=== PATIENT | female | born 1975 | race Caucasian/White ===

== ENCOUNTER 2019-11-13 12:25 | Outpatient (CLI) | payer BC, SELFPAY ==
--- NOTE | ~2019-11-13 | XR_ITS ---
XR lumbar spine 2-3V DATE: 11/13/2019 13:30 INDICATION: Back pain TECHNIQUE: AP, lateral, coned lateral lumbosacral views COMPARISON: 12/05/2011 MRI lumbar spine FINDINGS: Normal alignment of the lumbar spine. No fracture or bone destruction or spondylolisthesis. There is minimal degenerative spurring of the lumbar spine. There is mild loss of interspace height a t L1-2, L2-3, L3-4 and moderate loss of interspace height at L5-S1. Sacroiliac joints are normal. IMPRESSION: Mild degenerative changes Reviewed, dictated and finalized at location A. IMPRESSION: Mild degenerative changes
== END 2019-11-13 12:26 | disposition home or self-care (01) ==
PROVIDERS: Visit Provider Obstetrics & Gynecology
DX: M51.36 Other intervertebral disc degeneration, lumbar region (principal)
CPT/HCPCS: 72100

== ENCOUNTER → 2020-05-04 10:38 | Outpatient (CLI) | payer BC, SELFPAY ==
--- NOTE | ~2020-05-04 | MM_ITS ---
EXAMINATION: MM screening [facility] BI w fatou HISTORY: Screening mammogram TECHNIQUE: Craniocaudal and mediolateral oblique 3-D tomosynthesis images were obtained and synthetic 2-D images were generated. CAD analysis was submitted and interpreted. COMPARISON: 01/06/2019 BREAST PARENCHYMAL COMPOSITION: The breasts are heterogeneously dense, which may obscure small masses . FINDINGS: There is no evidence of suspicious mass, calcification, or architectural distortion to sugg est malignancy in either breast. There has been no suspicious interval change. IMPRESSION: 1. No mammographic evidence of malignancy. 2. Recommend routine screening mammography in one year. BI-RADS Category 1: Negative Reviewed, dictated and finalized at location A.
== END ==
PROVIDERS: PCP Physician Assistant Medical; Visit Provider Obstetrics & Gynecology
DX: Z12.31 Encounter for screening mammogram for malignant neoplasm of breast (principal)
CPT/HCPCS: 77063; 77067

== ENCOUNTER → 2021-09-26 12:17 | Outpatient (CLI) | payer BC, SELFPAY ==
--- NOTE | ~2021-09-26 | MM_ITS ---
EXAMINATION: MM screening [facility] BI w fatou HISTORY: Screening TECHNIQUE: Craniocaudal and mediolateral oblique 3-D tomosynthesis images were obtained and synthetic 2-D images were generated. CAD analysis was submitted and interpreted. COMPARISON: Comparison to multiple prior studies sequentially, with oldest reviewed study dated 03/2018. BREAST PARENCHYMAL COMPOSITION: There are scattered areas of fibroglandular density. FINDINGS: There is no evidence of suspicious mass, calcification, or architectural distortion to sugg est malignancy in either breast. There has been no suspicious interval change. IMPRESSION: 1. No mammographic evidence of malignancy. 2. Recommend routine screening mammography in one year. BI-RADS Category 1: Negative Reviewed, dictated and finalized at location A.
== END ==
PROVIDERS: PCP Physician Assistant Medical; Visit Provider Obstetrics & Gynecology
DX: Z12.31 Encounter for screening mammogram for malignant neoplasm of breast (principal)
CPT/HCPCS: 77063; 77067

== ENCOUNTER → 2022-09-28 12:21 | Outpatient (CLI) | payer BC, SELFPAY ==
--- NOTE | ~2022-09-28 | MM_ITS ---
EXAMINATION: MM screening [facility] BI w fatou HISTORY: Screening mammogram TECHNIQUE: Craniocaudal and mediolateral oblique 3-D tomosynthesis images were obtained and synthetic 2-D images were generated. CAD analysis was submitted and interpreted. COMPARISON: 09/26/2021, 05/04/2020 bilateral screening mammogram examinations BREAST PARENCHYMAL COMPOSITION: There are scattered areas of fibroglandular density. FINDINGS: There is no evidence of suspicious mass, calcification, or architectural distortion to sugg est malignancy in either breast. There has been no suspicious interval change. IMPRESSION: 1. No mammographic evidence of malignancy. 2. Recommend routine screening mammography in one year. BI-RADS Category 1: Negative Reviewed, dictated and finalized at location A.
== END ==
PROVIDERS: PCP Obstetrics & Gynecology; Visit Provider Obstetrics & Gynecology
DX: Z12.31 Encounter for screening mammogram for malignant neoplasm of breast (principal)
CPT/HCPCS: 77063; 77067

== ENCOUNTER 2023-10-01 12:21 | Outpatient (CLI) | payer BC, SELFPAY ==
--- NOTE | ~2023-10-01 | MM_ITS ---
EXAMINATION: MM screening [facility] BI w fatou HISTORY: Screening TECHNIQUE: Craniocaudal and mediolateral oblique 3-D tomosynthesis images were obtained and synthetic 2-D images were generated. CAD analysis was submitted and interpreted. COMPARISON: Comparison to multiple prior studies sequentially, with oldest reviewed study dated 03/2018. BREAST PARENCHYMAL COMPOSITION: Not dense: There are scattered areas of fibroglandular density. FINDINGS: There is no evidence of suspicious mass, calcification, or architectural distortion to sugg est malignancy in either breast. There has been no suspicious interval change. IMPRESSION: 1. No mammographic evidence of malignancy. 2. Recommend routine screening mammography in one year. BI-RADS Category 1: Negative Reviewed, dictated and finalized at location B.
== END 2023-10-01 12:22 ==
LOC: MICIMG 12:22
PROVIDERS: PCP Obstetrics & Gynecology; Visit Provider Obstetrics & Gynecology
DX: Z12.31 Encounter for screening mammogram for malignant neoplasm of breast (principal)
CPT/HCPCS: 77063; 77067

== ENCOUNTER 2023-11-20 13:14 | Outpatient (CLI) | payer OTHER, SELFPAY ==
[2023-11-20 13:44] LABS: Hematocrit 39.7 % (37.0-47.0); Hemoglobin 13.2 g/dL (12.0-15.0); Mean Corpuscular HGB Conc 33.2 g/dl (32-36); Mean Corpuscular Hemoglobin 31.1 pg (26-34); Mean Corpuscular Volume 93.6 fl (80-100); Mean Platelet Volume 11.6 fl (7.4-10.4); Platelet Count Result 176 k/mm3 (150-375); Red Blood Count 4.24 M/mm3 (4.2-5.4); Red Cell Distribution Width 11.7 % (11.5-14.5); White Blood Count 4.5 K/mm3 (4.5-10.0)
[2023-11-20 13:59] LABS: Albumin Level 4.1 g/dL (3.5-5.1); Anion Gap 6 mmol/L (4-12); Blood Urea Nitrogen 10 mg/dL (7-17); Calcium 8.9 mg/dL (8.4-10.2); Carbon Dioxide 29 mmol/L (22-30); Chloride 102 mmol/L (98-107); Estimated Glomerular Filt Rate > 60; Glucose 87 mg/dL (65-110); Potassium 3.6 mmol/L (3.4-5.0); Sodium 137 mmol/L (137-145)
[2023-11-20 14:00] LABS: Hemoglobin A1C 5.3 % (<5.7)
[2023-11-20 14:20] LABS: Iron 81 ug/dL (37-170)
[2023-11-23 17:52] LABS: Vitamin B1 8 nmol/L (8-30)
== END 2023-11-20 13:15 | disposition home or self-care (01) ==
PROVIDERS: PCP Obstetrics & Gynecology; Visit Provider Surgery Plastic and Reconstructive Surgery
DX: R63.4 Abnormal weight loss (principal)
CPT/HCPCS: 36415; 80048; 82040; 83036; 83540; 84134; 84425; 85027

== ENCOUNTER 2023-12-20 00:55 | Day surgery (SDC) | payer OTHER, SELFPAY ==
[2023-12-14 14:41] VITALS: BMI 26.6
--- NOTE | 2023-12-14 14:48 | PC.NURSE ---
Report to the Outpatient Waiting Room, entrance under the green pavilion located off [facility], at time _0600_ on date _[id number]_. Planned Procedure Time: _0730_.? Time changes happen often and if your time is changed the preop area will call you the afternoon before. - You and your visitor will be asked to self-screen and do not enter if you have any COVID symptoms. Please call surgeon if you need to reschedule. - A mask is optional within the hospital at this time. Patients may have clear liquids (water, carbonated beverages, clear teas, apple juice) until 3 hours prior to surgery with a maximum of 20 ounces. - No food from midnight until time of surgery and no smoking Take only the following medications with a SIP of water on the morning of surgery: _None____ DO NOT STOP ANY OF YOUR OTHER PRESCRIPTION MEDICATIONS PRIOR TO SURGERY EXCEPT THE FOLLOWING Medications to discontinue per physician __Patient stopped all her medications on [phone] Please no make-up, nail french, hairspray, perfume, deodorant, or body powder the day of surgery.? No jewelry (including any body piercings) or valuables the day of surgery, leave them at home.? Please take a shower or bath the night before, or the morning of, surgery with an antibacterial soap.? Wear comfortable, loose fitting clothing.? Children are encouraged to wear pajamas. - Jewelry must be removed prior to entering the operating room.? Rings and piercings that are not removed may be cut off. - The hospital will not accept responsibility for valuables.? - Please leave all valuables, including medications, at home the day of surgery. If you are going home after surgery, a licensed limb driver must drive you home.? - NO public transportation without another adult if you receive anesthesia. - We recommend that an adult stay with you for 24 hours following discharge. - We also recommend that you do not drive, make important decision, drink alcoholic beverages, or take any drugs that were not prescribed by your health care provider for at least 24 hours after your discharge time. For Pediatric surgeries, we recommend two adults accompany the child home. Follow any additional instructions given to you from your surgeon. Telephone instructions given to ___Lorenza__and asked if any additional questions and then verbalized understanding. Patient advised to call surgeon office or pre surgery nurse liaison [phone] if any additional questions.
[2023-12-20] VITALS (10 sets, daily range): BP systolic 97–149; BP diastolic 46–88; PULSE 70–76; RESP 16–22; TEMP 36.4–36.9; O2SAT 93–100
--- NOTE | 2023-12-20 05:51 | ECG_ITS ---
Test Date: 2023-12-20 06:40:51 Measurements Intervals Comfort Rate: 64 P: 37 NC: 137 QRS: 38 QRSD: 83 T: 38 QT: 415 QTc: 431 Interpretive Statements SINUS RHYTHM MINIMAL Q WAVES- INFERIOR LEADS BASELINE ARTIFACT- I, II, AVR, V1 BORDERLINE ECG No previous ECG available for comparison Electronically Signed On 12-20-2023 07:51:38 RECRUITMENT AND OUTREACH ASSISTANT by Eleuterio Arellano D.O.
[2023-12-20 06:38] LABS: Urine Cotinine NEGATIVE
[2023-12-20] MEDS: LACTATED RINGERS 1,000 ML 30 ML IV CONT ×2 (06:45→12:07)
[2023-12-20] MEDS: SCOPOLAMINE 1 MG PATCH 1 PATCH TRANSDERM (06:51)
--- NOTE | 2023-12-20 07:03 | WPDHPUPDATE1 ---
History and Physical Update Update Date/Time: 12/20/23 07:03 History and Physical has been reviewed, including an updated exam of the patient. There are NO changes in the patient's condition. Risks, benefits, and alternatives have been discussed and questions answered. Patient agrees to proceed with procedure.
--- NOTE | 2023-12-20 07:03 | W.PM.PROC2 ---
Procedure Note - Detailed Date of Procedure 12/20/23 Pre-op Diagnosis breast ptosis,micromastia Post-op Diagnosis Same Procedure Performed 1. Bilateral mastopexy with Galaflex 2. Fat grating breast 3. Suction lipectomy lateral breast / chest wall 4. Central scar revision Surgeon Juan Alberto Pate MD Anesthesia General Findings Inverted T Superior medial pedicle Lipoaspirate: 2,200 cc Lignite sites: Back, flanks, lateral breast/chest wall. Fat grafting: Right breast: 350 cc Left breast: 300 cc Galaflex REF# [id number] Description of Procedure They are here today for the above procedures. Previously and again today the risks, benefits, alternatives were discussed in extensive detail. I wanted them to be very realistic about the risks involved as well as expectations. We discussed aftercare and what to monitor for. She understands given her history of cardiac surgery she does have very unique risks which were outlined extensively. She had open wounds / skin grafts with her cardiac surgery and is very familiar with. We discussed DVT/PE risks and management. Made sure answered all of their questions to their satisfaction today and consent was obtained. They were marked in the preoperative holding area with their verification. The patient was taken to the operating room. Anesthesia was provided by anesthesiology. A Leiva catheter was started. Placed prone on the operating room table with care taken to protect from injury. Adipose harvest Prepped and draped in a standard sterile fashion. A surgical time-out was taken. Stab incisions were made and tumescent solution was infiltrated. Once adequate time was allowed for hemostasis a 3mm mutli hole fat harvest cannula were utilized to complete suction lipectomy in multiple planes and passes to a gravity separation. Final contour was with a 4mm gill cannula. Suction lipectomy continued to result based on pre-operative planning, intra-operative observation, and rolling pinch test which were in full agreement. Patient was then placed supine with care taken to protect from injury. Stab incisions were made and tumescent solution was infiltrated. Once adequate time was allowed for hemostasis a 3mm mutli hole fat harvest cannula were utilized to complete suction lipectomy in multiple planes and passes to a gravity separation. Final contour was with a 4mm gill cannula. Suction lipectomy continued to result based on pre-operative planning, intra-operative observation, and rolling pinch test which were in full agreement. Mastopexy Eleven blade was utilized to make a stab incision and infiltrated with low volume tumescent solution. The breast was tailor tacked into place. I tailor tacked the breast into position. Placed her in a sitting position. Verified the nipple-areolar location based on preoperative planning as well as intraoperative observations and measurements in full agreement. She was placed supine. I de-epithelialized the pedicle. I elevated medial and lateral tissue flaps as well for planned closure. Galaflex was soaking on the back table in a betadine solution. It was trimmed and sutured into place with 2-0 Vicryl A 3mm mutli hole fat harvest cannula were utilized to complete suction lipectomy in multiple planes and passes to a gravity separation. Final contour was with a 4mm gill cannula. Suction lipectomy continued to result based on pre-operative planning, intra-operative observation, and rolling pinch test which were in full agreement. Fat grating was completed with the 4mm cannula utilizing Microaire cannula. Fat was transferred to 60cc syringes with the fast food assistant restaurant manager feeding through lipo tubing to volumes as above. I closed along the IMF with 2-0 Stratafix. Along the vertical with 2-0 PDS. I closed around the French with 3-0 strata fix. 3-0 Monocryl along the vertical. 3-0 Stratafix along the IMF. I finally closed everything with running subcuticular 4-0 Monocryl and tissue glue. Central scar revision Central chest z plasty created with 15 blade and transposed into position. This was closed with 3-0 Monocryl and 5-0 plain gut suture. Fluffs and surgical bra were placed as well as TopiFoam and a binder. Estimated Blood Loss 50 Drains No Packing No Pathology None sent Complications No immediate complications Condition Stable Disposition PACU
--- NOTE | 2023-12-20 07:11 | P.PNAN_ITS ---
Anes - Initial Pre Proc Eval Procedure: Operation Date: 12/20/23 07:30 Proposed Procedures p Bilateral Breast Mastopexy with Galaflex, - Juan Alberto Pate MD s Fat Grafting to Bilateral Breasts, Bilateral Lateral Breast to Bra Roll Liposuction, Central Chest Scar Revision - Juan Alberto Pate MD Date/Time: 12/20/23 07:11 Surgeon: Juan Alberto Pate MD Pre Op Diagnosis: breast ptosis,micromastia Patient Data Age: 48 Gender: F Height: 1.6 m Weight: 74.9 kg Last Vital Signs Temp 36.9 C 12/20/23 06:27 Pulse 71 12/20/23 06:27 Resp 16 12/20/23 06:27 BP 149/88 H 12/20/23 06:27 Pulse Ox 99 12/20/23 06:27 O2 Del Method Room Air 12/20/23 06:27 Allergies Allergy/AdvReac Type Severity Reaction Status Date / Time No Known Allergies Allergy Verified 12/20/23 06:40 Home Medications Medication Instructions Recorded Confirmed Type estradiol 0.05 mg/24 hr semiweekly 1 patch transdermal 2XW #8 ea 11/05/23 12/20/23 Rx transdermal patch progesterone micronized 100 mg 100 mg PO DAILY #21 caps 11/27/23 12/20/23 Rx capsule estradiol 1.25 mg/1.25 gram (0.1 1 packet topical DAILY 12/14/23 12/20/23 History %) transdermal gel packet Laboratory Tests 12/20/23 06:19 Cotinine Negative Patient hx anesthesia problems: none Family hx anesthesia problems: none Results Review: All pre-operative results and documents have been reviewed as part of the pre- operative evaluation. [facility] Past Medical History Medical History Hypercholesteremia Obesity Pre-diabetes Surgical History Surgical History H/O laparoscopy endometriosis H/O: hysterectomy Family History Family History Father Family history of thyroid disease Grandparent Family history of diabetes mellitus in first degree relative Social History Social History Social History: 11/27/23 very confident with medical forms Smoking status: Never smoker Alcohol intake: current Drinks per week: 1 Substance use: never Do You Feel Safe in your Home?: Yes Lack of Transportation: No Lack of Food: Never True Current Housing: I Have Housing Concerned About Future Housing: No Difficulty Paying Gas/Electric Bills: No Difficulty Paying for Meds: No Currently Unemployed: No Education: High School Diploma/GED Difficulty w/ Childcare or Family Care: No Living arrangements: with family Occupation/Education: other 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 Patient states having open heart surgery as a teenager for a congenital atrial septal defect. States no other cardiac hx. Informed Consent: The patient's anesthetic plan and its attendant risks and benefits were discussed with the patient/family/POA. Questions were solicited and answers provided to the satisfaction of the patient/family/POA.
[2023-12-20] MEDS: ceFAZolin 2 GM/D5W 50 ML 2 GM/50 ML BAG IVPB (07:36)
[2023-12-20] MEDS: TRANEXAMIC ACID 1,000MG/ISO100 1,000 MG/100 ML BAG 200 MG IVPB (07:55)
[2023-12-20] MEDS: LACTATED RINGERS IRRIG 1,000 ML, LIDOCAINE HCL 1% LOCAL INJ 50 ML, EPINEPHrine HCL INJ ... INFILTRATE (08:24)
[2023-12-20] MEDS: NACL 0.9% IRRIG POUR BOTTLE 900 ML, GENTAMICIN SULFATE INJ 160 MG, ceFAZolin 2 GM, POVI... IRRIGATION (08:24)
[2023-12-20] MEDS: ceFAZolin SODIUM 1 GM VIAL IV PUSH (11:36)
--- NOTE | 2023-12-20 12:10 | SUR.OPER ---
225mL clear yellow urine drained from barragan bag at 1200 in the Operating Room
[2023-12-20] MEDS: oxyCODONE HCL (*CRX) 5 MG TAB IR PO (13:25)
== END 2023-12-20 14:10 | disposition home or self-care (01) ==
PROVIDERS: PCP Physician Assistant Medical; Visit Provider Surgery Plastic and Reconstructive Surgery
PROC: (CPT 19316; principal; 2023-12-20 07:30)
PROC: (CPT 15769; 2023-12-20 07:30)
DX: Z41.1 Encounter for cosmetic surgery (principal); N64.81 Ptosis of breast; N64.82 Hypoplasia of breast
CPT/HCPCS: 19316; 15777 ×2; 15771; 15772 ×12; 80307; 93005; A9270; J0171; J0690; J1100; J1171; J1580; J2003; J2004; J2250; J2405; J2704; J3010; J7120

== ENCOUNTER 2023-12-21 11:58 | Outpatient (CLI) | payer BC, SELFPAY ==
--- NOTE | ~2023-12-21 | US_ITS ---
EXAMINATION: US venous doppler [facility] DATE: 12/21/2023 12:33 INDICATION: Left calf and leg pain. TECHNIQUE: Grayscale ultrasound images without and with compression and Doppler ultrasound images of the left lower extremity veins were obtained. COMPARISON: None. FINDINGS: The visualized portions of left common femoral vein, profunda (deep) femoral vein, femoral vein, popl iteal vein, peroneal veins, posterior tibial veins, and greater saphenous vein outflow are patent. IMPRESSION: 1. No deep venous thrombosis. Reviewed, dictated and finalized at location A. MACHINE OPERATOR
== END 2023-12-21 11:59 | disposition home or self-care (01) ==
PROVIDERS: PCP Physician Assistant Medical; Visit Provider Surgery Plastic and Reconstructive Surgery
DX: M79.662 Pain in left lower leg (principal)
CPT/HCPCS: 93971

== ENCOUNTER 2024-01-09 20:49 | Outpatient (NON) | payer BC, SELFPAY | END 2024-01-09 20:50 | disposition home or self-care (01) | LOC: ANHLAB 20:53 | PROVIDERS: PCP Physician Assistant Medical; Visit Provider Surgery Plastic and Reconstructive Surgery | DX: S21.002A Unspecified open wound of left breast, initial encounter (principal); X58.XXXA Exposure to other specified factors, initial encounter | CPT/HCPCS: 87070; 87075; 87077; 87186; 87205 ==

== ENCOUNTER 2024-11-20 15:00 | Outpatient (CLI) | payer BC, SELFPAY ==
--- NOTE | ~2024-11-20 | MM_ITS ---
EXAMINATION: MM screening carol BI w fatou HISTORY: Screening TECHNIQUE: Craniocaudal and mediolateral oblique 3-D tomosynthesis images were obtained and synthetic 2-D images were generated. CAD analysis was submitted and interpreted. COMPARISON: 09/24/2021 BREAST PARENCHYMAL COMPOSITION: The breasts are extremely dense, which lowers the sensitivity of mammography. FINDINGS: Asymmetry in the central right breast, middle to posterior depth with questionable architectural distortion. Indeterminate calcifications in the upper-outer quadrant of the right breast posterior depth. Indeterminate calcifications in the upper left breast, posterior depth, seen in the left MLO projection. Asymmetry in the central left breast, middle depth with questionable architectural distortion. Indeterminant calcifications in the lower inner quadrant of the left breast, posterior depth. IMPRESSION: 1. Asymmetry in the central right breast, middle to posterior depth, with questionable architectural distortion. The study is incomplete. A diagnostic mammogram and a diagnostic ultrasound are recommended. 2. Asymmetry in the central left breast, middle depth, with questionable architectural distortion. Indeterminant calcifications in the lower inner quadrant of the left breast, posterior depth. The study is incomplete. A diagnostic mammogram and a diagnostic ultrasound are recommended. BI-RADS 0: Incomplete-Need additional imaging evaluation. Reviewed, dictated and finalized at location Q. IMPRESSION: 1. Asymmetry in the central right breast, middle to posterior depth, with quest ionable architectural distortion. The study is incomplete. A diagnostic mammogr am and a diagnostic ultrasound are recommended. 2. Asymmetry in the central left breast, middle depth, with questionable chandan ectural distortion. Indeterminant calcifications in the lower inner quadrant of the left breast, posterior depth. The study is incomplete. A diagnostic mammog elvira and a diagnostic ultrasound are recommended. BI-RADS 0: Incomplete-Need additional imaging evaluation.
--- OUTSIDE RECORDS SUMMARY | 2024-11-20 17:10 | XMS_ITS | Clinical Summary ---
Author Organization [facility] Address [address] [place] [address] Care Team Providers Care Mine Technician Name Role Phone Ursula Bradford Primary Care Provider Source Comments [facility],non-owned Affiliates and Associated Physician Practices is amultiple site organization consisting of ambulatory clinics and hospital sitesin [place], [place], [place] and [place]. This disclosure is being madepursuant to the Care Everywhere program and may not contain all information available regarding this patient. Last updated 17.[facility] Social History Tobacco Use Types Packs/Day Years Used Date Smoking Tobacco: Never Assessed Comments Unknown Sex and Gender Information Value Date Recorded Sex Assigned at Not on file Legal Sex Female 9:59 AM CDT Gender Identity Not on file Sexual Orientation Not on file Plan of Treatment Health Maintenance Due Date Last Done Comments COLOGUARD (AGES 45-75) - COL ON CA SCREENING 1974 COLON MONITORING 1974 COLONOSCOPY - COLON CA SCREENING 1974 CT COLONOGRAPHY - COLON CA SCREENING 1974 Colorectal Cancer Screening 1974 FIT - COLON CA SCREENING 1974 FLEX SIG - COLON CA SCREENING 1974 LIPID TESTING 1974 MAMMOGRAM 1974 HIV SCREENING 1989 HEPATITIS C SCREENING 04/01/1992 DTAP/TDAP/TD VACCINES (1 - Tdap) 1993 HEPATITIS B VACCINE (1 of 3 - 19+ 3-dose series) 1993 PAP SMEAR 04/07/1995 DEPRESSION SCREENING 02/06/2024 PNEUMOCOCCAL VACCINE 50+ (1 of 1 - PCV) 2024 ZOSTER VACCINE (1 of 2) 2024 COVID-19 VACCINE (1 - 2023-2 5 season) 2024 INFLUENZA VACCINE (#1) 2024 HIB VACCINE Aged Out No longer eligi ble based on patient's age to complete this topic HPV VACCINE Aged Out No longer eligi ble based on patient's age to complete this topic MENINGOCOCCAL (Group B) VACC INE SHARED DECISION-MAKING Aged Out No longer eligibl e based on patient's age to complete this topic MENINGOCOCCAL GROUPS A/C/Y/W VACCINE Aged Out No longer eligible b ased on patient's age to complete this topic Care Teams Mine Technician Relationship Specialty Start Date End Date Ursula Bradford PA [address] [place] [id number] PCP - General 10/07/21
--- OUTSIDE RECORDS SUMMARY | 2024-11-20 17:10 | XMS_ITS | Clinical Summary ---
Author Organization [facility] Address [address] [place] [address] Phone Care Team Providers Care Hand Ironer Name Role Phone [facility], External Provider Primary Care Provider U navailable Allergies No known active allergies Medications predniSONE (DELTASONE) 1 mg tablet Take 1 mg by mouth daily. Pt unaware of dose she takes. 3 pills once a day Active Active Problems Problem Noted Date Diagnosed Date Sciatica 02/05/2019 Sepsis 02/05/2019 Influenza 02/05/2019 Pneumonia due to infectious organism 02/05/2019 Lactic acidosis Immunizations Immunization Administration Dates Next Due INFLUENZA VACCINE QUADRIVALENT 6 MOS UP PF IM Family History Medical History Relation Name Comments Thyroid Disease Father Diabetes Maternal Grandfather Relation Name Status Comments Father Maternal Grandfather Social History Tobacco Use Types Packs/Day Years Used Date Smoking Tobacco: Never Smokeless Tobacco: Never Feeling Safe Answer Date Recorded Within the last year, have y ou been afraid of your partner or ex-partner? No 02/05/2019 Within the last year, have y ou been humiliated or emotionally abused in other ways by your partner or ex-partner? No Within the last year, have y ou been kicked, hit, slapped, or otherwise physically hurt by your partner or ex-partner? No 02/05/2019 Within the last year, have y ou been raped or forced to have any kind of sexual activity by your partner or ex-partner? No 02/05/2019 Social Connections Answer Date Recorded In a typical week, how many times do you talk on the phone with family, friends, or neighbors? Once a week 02/05/2019 How often do you get together with friends or re latives? Once a week 02/05/2019 Attends Christianity Services Not on file 02/05 Do you belong to any clubs o r organizations such as mu-ism groups, unions, fraternal or athletic groups, or school groups? No 02/05/2019 How often do you attend meet ings of the clubs or organizations you belong to? Never 02/05/2019 Are you , , di vorced, , never , or living with a partner? 02/05/2019 Financial Resource Strain Answer Date R ecorded How hard is it for you to pa y for the very basics like food, housing, medical care, and heating? Not hard at all 02/05/2019 Food Insecurity Answer Date Recorded Within the past 12 months, y ou worried that your food would run out before you got the money to buy more. Never true 02/05/19 20 Within the past 12 months, t he food you bought just didn't last and you didn't have money to get more. Never true 02/05/2019 Transportation Needs Answer Date Record ed In the past 12 months, has l ack of transportation kept you from medical appointments or from getting medications? No 02/2019 In the past 12 months, has l ack of transportation kept you from meetings, work, or from getting things needed for daily living? No 02/05/2019 Comments No Sex and Gender Information Value Date Recorded Sex Assigned at Not on file Legal Sex Female 9:17 PM TAILMAN Gender Identity Not on file Sexual Orientation Not on file Last Filed Vital Signs Vital Sign Reading Time Taken Comments Blood Pressure 111/60 02/05/2019 12:51 PM TAILMAN Pulse 76 02/05/2019 12:51 PM TAILMAN Temperature 36.8 C (98.2 F) 02/05/2019 12:51 PM TAILMAN Respiratory Rate 16 02/05/2019 11:28 AM TAILMAN Oxygen Saturation 92% 02/05/2019 12:51 PM TAILMAN Inhaled Oxygen Concentration - - Weight 83.9 kg (185 lb) 02/04/2019 9:37 PM TAILMAN Height 160 cm (5' 3) 02/04/2019 9:37 PM TAILMAN Body Mass Index 32.77 02/04/2019 9:37 PM TAILMAN Plan of Treatment Health Maintenance Due Date Last Done Comments DTAP/TDAP/TD VACCINES (1 - Tdap) 1993 HEPATITIS B VACCINES (1 of 3 - 19+ 3-dose series) 03/1993 HPV/Cotest (21-29) 04/07/1995 CERVICAL CANCER SCREENING 2004 HPV/Cotest (30-65) 2004 PAP SMEAR 2004 BREAST CANCER SCREENING 2014 COLORECTAL SCREENING 04/07/2019 Colorectal Cancer Screening 04/07/2019 FIT-DNA Q 3 years 04/07/2019 FIT/FOBT Q 1 year 04/07/2019 Flex Sig/CT Colonography Q 5 years 04/07/2019 ZOSTER VACCINE (1 of 2) 2024 INFLUENZA VACCINE (#1) 2024 02/05/[address] [place] [address] [facility] CHO[facility] Advance Directives For more information, please contact: [phone] * Full Code (Latest Code Status on File) Date Activated Date Inactivated Comments 02/05/2019 2:59 AM 02/05/2019 6:02 PM Care Teams Hand Ironer Relationship Specialty Start Date End Date [facility], External Provider [address] [place] [address] PCP - General 02/05/19
== END 2024-11-20 15:01 | disposition home or self-care (01) ==
LOC: CHSIMG 15:01
PROVIDERS: PCP Physician Assistant Medical; Visit Provider Obstetrics & Gynecology
DX: Z12.31 Encounter for screening mammogram for malignant neoplasm of breast (principal); R92.8 Other abnormal and inconclusive findings on diagnostic imaging of breast
CPT/HCPCS: 77063; 77067

== ENCOUNTER 2025-01-06 09:46 | Outpatient (CLI) | payer BC, SELFPAY ==
--- NOTE | ~2025-01-06 | MMUS_ITS ---
EXAMINATION: MM diagnostic carol BI w fatou, US breast BI complete HISTORY: Follow-up bilateral breast asymmetries TECHNIQUE: Additional 3-D tomosynthesis images of the breasts were performed and synthetic 2-D images were generated. CAD analysis was submitted and interpreted. High resolution bilateral complete breast ultrasound was performed. COMPARISON: Comparison to multiple prior studies sequentially, with oldest reviewed study dated 01/06/2019. BREAST PARENCHYMAL COMPOSITION: Dense: The breasts are heterogeneously dense, which may obscure small masses FINDINGS: MAMMOGRAPHIC FINDINGS: There are no discrete masses. There are no areas of suspicious calcifications or architectural distortion. ULTRASOUND: Complete US of all 4 quadrants of the breast/s and retroareolar region was reviewed. Right breast: There are multiple cysts which are simple and complicated. At 8:00, 8 cm from the nipple there is a cluster of complicated cysts measuring up to 3.3 cm in aggregate. Left breast: At 6:00, 2 cm from the nipple there is an oval hypoechoic 7 mm mass with slightly irregular margins, no posterior features and no internal vascularity. IMPRESSION: 1. Left breast mass at 6:00, 2 cm from the nipple measuring 7 mm with slightly irregular margins. Ultrasound-guided left breast biopsy recommended. 2. Probable benign complicated cysts of the right breast. Six-month follow-up Limited right breast ultrasound recommended. BI-RADS category 4, suspicious findings. Reviewed, dictated and finalized at location I. NG ROOM HOST/HOSTESS IMPRESSION: 1. Left breast mass at 6:00, 2 cm from the nipple measuring 7 mm with slightly irregular margins. Ultrasound-guided left breast biopsy recommended. 2. Probable benign complicated cysts of the right breast. Six-month follow-up L imited right breast ultrasound recommended. BI-RADS category 4, suspicious findings.
--- OUTSIDE RECORDS SUMMARY | 2025-01-06 10:37 | XMS_ITS | Clinical Summary ---
Author Organization [facility] Address [address] [place] [address] Care Team Providers Care Donor Services Coordinator Name Role Phone Ursula Bradford Primary Care Provider Source Comments [facility],non-owned Affiliates and Associated Physician Practices is amultiple site organization consisting of ambulatory clinics and hospital sitesin [place], [place], [place] and [place]. This disclosure is being madepursuant to the Care Everywhere program and may not contain all information available regarding this patient. Last updated 17.[facility] Social History Tobacco Use Types Packs/Day Years [...] of 3 - 19+ 3-dose series) 1993 Cervical Cancer Screening 04/07/1995 PAP SMEAR 04/07/1995 PAP with HPV 2004 DEPRESSION SCREENING 02/06/2024 PNEUMOCOCCAL VACCINE 50+ (1 of 1 - PCV) 2024 ZOSTER VACCINE (1 of 2) 2024 COVID-19 VACCINE (1 - 2024-2 6 season) 2024 INFLUENZA VACCINE (#1) 2024 HIB [...] age to complete this topic Care Teams Donor Services Coordinator Relationship Specialty Start Date End Date Ursula Bradford PA [address] [place] [id number] PCP - General 10/07/21
--- OUTSIDE RECORDS SUMMARY | 2025-01-06 10:37 | XMS_ITS | Clinical Summary ---
Author Organization [facility] Address [address] [place] [phone] Phone Care Team Providers Care Operating Engineer Apprentice Name Role Phone [facility], External Provider Primary Care Provider U navailable [...] re latives? Once a week 02/05/2019 Attends Sabianism Services Not on file 02/05 Do you belong to any clubs o r organizations such as mormonism groups, unions, fraternal or athletic groups, or [...] on file Legal Sex Female 9:17 PM CANAL TENDER Gender Identity Not on file Sexual Orientation Not on file Last Filed Vital Signs Vital Sign Reading Time Taken Comments Blood Pressure 111/60 02/05/2019 12:51 PM CANAL TENDER Pulse 76 02/05/2019 12:51 PM CANAL TENDER Temperature 36.8 C (98.2 F) 02/05/2019 12:51 PM CANAL TENDER Respiratory Rate 16 02/05/2019 11:28 AM CANAL TENDER Oxygen Saturation 92% 02/05/2019 12:51 PM CANAL TENDER Inhaled Oxygen Concentration - - Weight 83.9 kg (185 lb) 02/04/2019 9:37 PM CANAL TENDER Height 160 cm (5' 3) 02/04/2019 9:37 PM CANAL TENDER Body Mass Index 32.77 02/04/2019 9:37 PM CANAL TENDER Plan of Treatment Health Maintenance Due Date [...] 2024 INFLUENZA VACCINE (#1) 2024 02/05/2019 Insurance [facility] BLUE ACCESS CHOICE Advance Directives For more information, please contact: [phone] * Full Code (Latest Code Status on File) Date Activated Date Inactivated Comments 02/05/2019 2:59 AM 02/05/2019 6:02 PM Care Teams Operating Engineer Apprentice Relationship Specialty Start Date End Date [facility] [address] [place] [address] PCP - General 02/05/19
--- OUTSIDE RECORDS SUMMARY | 2025-01-06 10:37 | XMS_ITS | Clinical Summary ---
Author Organization [facility] Address [facility] [place] [address] Care Team Providers Care Irrigation Laborer Name Role Phone None, Provider MD Primary Care Provider Unavaila ble Allergies No known active allergies Medications atorvastatin (LIPITOR) 10 MG tablet Take 10 mg by mouth daily. 01/24/2022 Active metFORMIN (GLUCOPHAGE) 500 MG tablet Take 500 mg by mouth 2 (two) times daily with meals. Active valACYclovir (VALTREX) 1 g tabletIndications :Herpes zoster without complication Take 1 tablet (1,000 mg total) by mouth 3 (three) times daily. 30 tablet 02/10/2022 Active Active Problems No known active problems Immunizations Immunization Administration Dates Next Due Influenza Adult (Generic) 02/05/2019 Tdap (Generic) 02/16/2018 Social History Tobacco Use Types Packs/Day Years Used Date Smoking Tobacco: Never Passive Smoke Exposure: Never Smokeless Tobacco: Never Tobacco Cessation:Counseling Given: No Comments No Sex and Gender Information Value Date Recorded Sex Assigned at Not on file Legal Sex Female 5:21 PM CDT Gender Identity Not on file Sexual Orientation Not on file Last Filed Vital Signs Vital Sign Reading Time Taken Comments Blood Pressure 134/83 02/10/2022 12:19 PM FIRE PREVENTION BUREAU CAPTAIN Pulse 64 02/10/2022 12:19 PM FIRE PREVENTION BUREAU CAPTAIN Temperature 36.2 C (97.1 F) 02/10/2022 12:19 PM FIRE PREVENTION BUREAU CAPTAIN Respiratory Rate 20 02/10/2022 12:19 PM FIRE PREVENTION BUREAU CAPTAIN Oxygen Saturation 98% 02/10/2022 12:19 PM FIRE PREVENTION BUREAU CAPTAIN Inhaled Oxygen Concentration - - Weight 88.5 kg (195 lb) 02/10/2022 12:19 PM FIRE PREVENTION BUREAU CAPTAIN Height 160 cm (5' 3) 02/10/2022 12:19 PM FIRE PREVENTION BUREAU CAPTAIN Body Mass Index 34.54 02/10/2022 12:19 PM FIRE PREVENTION BUREAU CAPTAIN Plan of Treatment Health Maintenance Due Date Last Done Comments Cervical Cancer Screening Pa p Smear (Age 30 to 64) Every 3 Years 1974 Colorectal Cancer Screening Colonoscopy (10 Years) 1974 Annual Physical 1977 Hepatitis C 1992 Hepatitis B Vaccines (1 of 3 - 19+ 3-dose series) 1993 Cervical Cancer Screening Pa p with HPV Testing (Age 30 to 64) Every 5 Years 2004 Cervical Cancer Screening with HPV 2004 Mammogram Screening 2014 Pneumococcal Vaccine: 50+ Ye ars (1 of 1 - PCV) 2024 Zoster Vaccines (1 of 2) 2024 COVID-19 Vaccine (1 - 2024-2 6 season) 2024 Influenza Adult (#1) 2024 02/05/2019 DTaP, Tdap and Td Vaccines ( 2 - Td or Tdap) 02/17/2028 02/16/2018 Hepatitis A Vaccines Aged Out No long er eligible based on patient's age to complete this topic Meningococcal B Vaccine Aged Out No l onger eligible based on patient's age to complete this topic Meningococcal Vaccine Aged Out No darby billy eligible based on patient's age to complete this topic RSV Immunizations Under 20 Months Aged Out No longer eligible based on patient's age to complete this topic Insurance [place], [place] [id number] [place] [address] Care Teams Irrigation Laborer Relationship Specialty Start Date End Date None, Provider, MD PCP - General UNKNOWN PHYSICIAN SPECIALTY 02/10/22
== END 2025-01-06 09:47 | disposition home or self-care (01) ==
PROVIDERS: PCP Physician Assistant Medical; Visit Provider Obstetrics & Gynecology
DX: R92.8 Other abnormal and inconclusive findings on diagnostic imaging of breast (principal)
CPT/HCPCS: 76641; 77062; 77066; G0279

== ENCOUNTER 2025-01-21 08:57 | Outpatient (CLI) | payer BC, SELFPAY ==
--- NOTE | ~2025-01-21 | MMUS_ITS ---
PROCEDURE: US breast biopsy LT w image, MM post biopsy diagnostic LT CLINICAL HISTORY: 49-year-old female with suspicious left breast mass presents for ultrasound-guided core needle biopsy procedure. COMPARISON: 01/06/2025. Following informed consent including risks, benefits, and possible complications, the patient was brought to the ultrasound suite. A time-out procedure was performed. A preliminary ultrasound of the left breast was performed, redemonstrating hypoechoic mass at 6:00 location. The patient was prepped and draped in the usual sterile fashion. 1% lidocaine was instilled into the subcutaneous tissues. 1% lidocaine without epinephrine was injected into the deep tissues just inferior to the lesion. Approximately 15cc lidocaine was administered. A small skin sonali was made. Multiple core samples were obtained with a 14-gauge multi pass biopsy needle. A post biopsy [place] coil marker was placed at the biopsy site. Postprocedural mammogram of the left breast in craniocaudal and mediolateral projections reveal the post biopsy metal marker in good position. The patient tolerated the procedure well and was without immediate postprocedural complications. IMPRESSION: Successful ultrasound guided biopsy of left breast hypoechoic mass. A post biopsy metal marker was placed at the biopsy site, which is seen on postprocedural mammogram. The patient tolerated the procedure well without immediate postprocedure complications. The patient was given postprocedural instructions and sent home in stable condition. Pathology report pending Reviewed, dictated and finalized at location A. LE APPLICATION TESTER IMPRESSION: Successful ultrasound guided biopsy of left breast hypoechoic mass. A post biopsy metal marker was placed at the biopsy site, which is seen on pos tprocedural mammogram. The patient tolerated the procedure well without immediate postprocedure compli cations. The patient was given postprocedural instructions and sent home in sta ble condition. Pathology report pending
--- OUTSIDE RECORDS SUMMARY | 2025-01-21 09:36 | XMS_ITS | Clinical Summary ---
Author Organization [facility] Address [address] [place] [address] Care Team Providers Care Milker Machine Name Role Phone Ursula Bradford Primary Care Provider [phone] Source Comments [facility],non-owned Affiliates and Associated Physician Practices is amultiple site organization consisting of ambulatory clinics and hospital sitesin [place], [place], [place] and [place]. This disclosure is being madepursuant to the Care Everywhere program and may not contain all information available regarding this patient. Last updated 17.[facility] Social History Tobacco Use Types Packs/Day [...] age to complete this topic Care Teams Milker Machine Relationship Specialty Start Date End Date Ursula Bradford PA [address] [place] [id number] PCP - General 10/07/21
--- OUTSIDE RECORDS SUMMARY | 2025-01-21 09:36 | XMS_ITS | Clinical Summary ---
Author Organization [facility] Address [facility] [place] [address] Care Team Providers Care Boiler Inspector Name Role Phone None, Provider MD Primary [...] Comments Blood Pressure 134/83 02/10/2022 12:19 PM BRANCH SPECIALIST Pulse 64 02/10/2022 12:19 PM BRANCH SPECIALIST Temperature 36.2 C (97.1 F) 02/10/2022 12:19 PM BRANCH SPECIALIST Respiratory Rate 20 02/10/2022 12:19 PM BRANCH SPECIALIST Oxygen Saturation 98% 02/10/2022 12:19 PM BRANCH SPECIALIST Inhaled Oxygen Concentration - - Weight 88.5 kg (195 lb) 02/10/2022 12:19 PM BRANCH SPECIALIST Height 160 cm (5' 3) 02/10/2022 12:19 PM BRANCH SPECIALIST Body Mass Index 34.54 02/10/2022 12:19 PM BRANCH SPECIALIST Plan of Treatment Health Maintenance Due Date [...] patient's age to complete this topic Insurance [place], [place] [id number] [place] [address] Care Teams Boiler Inspector Relationship Specialty Start Date End Date None, Provider, MD PCP - General UNKNOWN PHYSICIAN SPECIALTY 02/10/22
--- OUTSIDE RECORDS SUMMARY | 2025-01-21 09:36 | XMS_ITS | Clinical Summary ---
Author Organization [facility] Address [address] [place] [phone] Phone Care Team Providers Care Sifter And Miller Name Role Phone [facility], External Provider Primary Care Provider U [...] re latives? Once a week 02/05/2019 Attends Zoroastrian Services Not on file 02/05 Do you belong to any clubs o r organizations such as synagogue groups, unions, fraternal or athletic groups, or [...] on file Legal Sex Female 9:17 PM SENIOR ADULTS DIRECTOR Gender Identity Not on file Sexual Orientation Not on file Last Filed Vital Signs Vital Sign Reading Time Taken Comments Blood Pressure 111/60 02/05/2019 12:51 PM SENIOR ADULTS DIRECTOR Pulse 76 02/05/2019 12:51 PM SENIOR ADULTS DIRECTOR Temperature 36.8 C (98.2 F) 02/05/2019 12:51 PM SENIOR ADULTS DIRECTOR Respiratory Rate 16 02/05/2019 11:28 AM SENIOR ADULTS DIRECTOR Oxygen Saturation 92% 02/05/2019 12:51 PM SENIOR ADULTS DIRECTOR Inhaled Oxygen Concentration - - Weight 83.9 kg (185 lb) 02/04/2019 9:37 PM SENIOR ADULTS DIRECTOR Height 160 cm (5' 3) 02/04/2019 9:37 PM SENIOR ADULTS DIRECTOR Body Mass Index 32.77 02/04/2019 9:37 PM SENIOR ADULTS DIRECTOR Plan of Treatment Health Maintenance Due Date [...] 2024 INFLUENZA VACCINE (#1) 2024 02/05/2019 Insurance [facility] BLUE ACCESS CHOICE Advance Directives For more information, please contact: [phone] * Full Code (Latest Code Status on File) Date Activated Date Inactivated Comments 02/05/2019 2:59 AM 02/05/2019 6:02 PM Care Teams Sifter And Miller Relationship Specialty Start Date End [facility] [address] [place] [address] PCP - General 02/05/19
--- NOTE | 2025-01-21 10:05 | S_PTH ---
PATIENT: Lorenza Foster LOC: [facility] U#:[id number] AGE/SX: 49/F ROOM: RE01/21/[address]: Gracie Chaidez MD : 1975 BED: DIS: 01/21/2025 SPEC #: [id number] RECD: 01/21/25 11:53 STATUS: LIZ RECortez #: [id number] MAURICE: 01/21/25 10:[address]: Gracie Chaidez DEPT: [facility] Surgical RECD BY: Kenna Anderson ENTERED: 01/21/25 11:53 SP TYPE: Surgical OTHR DR: Ursula Bradford PA-C Tissues: A - Breast Biopsy Procedures: Hematoxylin and Eosin Stain Gross and Microscopic Level 4
== END 2025-01-21 08:58 | disposition home or self-care (01) ==
PROVIDERS: PCP Physician Assistant Medical; Visit Provider Surgery
DX: R92.8 Other abnormal and inconclusive findings on diagnostic imaging of breast (principal); N64.1 Fat necrosis of breast
CPT/HCPCS: 19083; 77065; 88305; A4648